=== PATIENT | female | born 1955 | race Caucasian/White ===

== ENCOUNTER → 2019-11-21 | Outpatient (CLI) | payer OTHER ==
[~2019-11-21] MED LIST: ACET-683 PO; ASPI81TA26 PO; BIOT1000 PO; CALCTAB22 PO; CARV6.25 PO; CLOP75TA2 PO; D3 H2000 PO; HYDR25TAB PO; IBUP-1022 PO; IPRA0.00 NEB; LEVAINH INH; LEVOTAB10 PO; LOSA25TA14 PO; LOVA40TA PO; MONT10TA4 PO; MUCI1TAB16 PO; MULTCAP PO; NUCA1INJ SC; PANT40TA29 PO; TREL1AER PO; VITA-243 PO
--- NOTE | 2019-11-25 10:49 | REP ---
BILATERAL LOWER EXTREMITY ARTERIAL DOPPLER ULTRASOUND HISTORY: Atherosclerosis of the [place] vessels. Nicotine dependence. FINDINGS: Ankle brachial indices are normal, measured at 1.0 bilaterally. Minimal plaquing is seen bilaterally. Triphasic and biphasic waveforms are noted throughout the lower extremities. Question of minimal stenosis in the tibioperoneal trunk region on the left. No other stenosis or occlusion is visible. BILATERAL LOWER EXTREMITY ARTERIAL VELOCITY CHART RIGHT PSV (cm/s) LEFT PSV (cm/s) [employer] MA[employer]GER 105 100 Profunda 67 59 Proximal SFA 78 88 Mid SFA 90 91 Distal SFA 75 96 Popliteal 61 64 Proximal VANESSA 33 53 Tibioperoneal trunk 89 113 Proximal CMM TECHNICIAN 67 30 Distal CMM TECHNICIAN 56 40 Distal VANESSA 56 65 MTDD
== END ==
LOC: M RAD 08:06
PROVIDERS: ATTEND Physician Assistant
DX: I70.203 Unspecified atherosclerosis of native arteries of extremities, bilateral legs (principal); F17.210 Nicotine dependence, cigarettes, uncomplicated

== ENCOUNTER → 2019-12-02 | Outpatient (CLI) | payer OTHER ==
[~2019-12-02] MED LIST changes: +ISOVUE-300 61% 50ML VIAL As Ordered ONE; +LIDOCAINE 1% MDV 20ML VIAL As Ordered ONE; +MIDAZOLAM INJ 2MG/2ML VIAL (J2250 PER 1MG) As Ordered ONE; +PERCOCET 5MG/325MG TAB As Ordered ONE; +fentaNYL 100 MCG/2 ML INJECTION (J3010) As Ordered ONE
[2019-12-02 09:13] LABS: HEMATOCRIT 45.2 % (36.0-47.0); HEMOGLOBIN 14.9 g/dl (12.0-15.5); MEAN CORPUSCULAR HEMOGLOBIN 28.1 pg (27.0-33.0); MEAN CORPUSCULAR VOLUME 85.1 fl (80.0-96.0); PLATELET COUNT, AUTOMATED 290 10^3/uL (150-450); RED BLOOD COUNT 5.31 10^6/uL (4.00-5.40); WHITE BLOOD COUNT 6.3 10^3/uL (4.0-10.0)
[2019-12-02 09:29] LABS: BLOOD UREA NITROGEN 8 MG/DL (7-18); CALCIUM LEVEL 9.4 MG/DL (8.8-10.2); CARBON DIOXIDE LEVEL 30 MEQ/L (21-32); CHLORIDE LEVEL 107 MEQ/L (98-107); CREATININE FOR GFR 0.72 MG/DL (0.55-1.30); GLOMERULAR FILTRATION RATE > 60.0 (>45); GLUCOSE, FASTING 85 MG/DL (70-100); POTASSIUM SERUM 3.8 MEQ/L (3.5-5.1); SODIUM LEVEL 142 MEQ/L (136-145)
[2019-12-02 09:41] LABS: INR 0.94; PROTHROMBIN TIME 12.8 SECONDS (12.5-14.3)
--- NOTE | 2019-12-02 10:01 | ROOPDOC ---
[facility] Report Of Operation Report of Operation DATE OF PROCEDURE: 12/02/19 PREPROCEDURE DIAGNOSES: Atherosclerosis of the [place] arteries with lifestyle limiting pain and claudication POSTPROCEDURE DIAGNOSES: Lower extremity pain PROCEDURE: 1. Ultrasound-guided access right common femoral artery 2. Aortoiliofemoral arteriogram 3. Selection left common and superficial femoral artery and left lower extremity runoff 4. Mynx closure right common femoral artery SURGEON: Isabel Huerta MD ANESTHESIA: Local anesthesia 8 mL lidocaine. Moderate intravenous conscious sedation was supervised by Dr. Huerta. The patient was independently monitored by a registered nurse assigned to the Department of radiology using automated blood pressure, EKG, and pulse oximetry. The detailed sedation record is permanently stored in the hospital information system. The following is a brief sedation record: Start time 09:20, stop time 09:37, Versed 0.5 mg IV, fentanyl 25 g IV. CONTRAST: 22 mL Isovue-300 INDICATION FOR PROCEDURE: This is a very pleasant 64-year-old female with suspected peripheral vascular disease contributing to her lower extremity pain. The patient has significant back issues, and we suspect the majority of her pain is neurogenic, but she complains of crampy calf pain with ambulation that resolves when she stops ambulating, which could be consistent with claudication. She also complains that sometimes her left foot gets cold. Based on her arterial duplex, I am not sure whether or not she has significant vascular disease in the left lower extremity, however her crampy calf ambulation symptoms are classic for claudication and her lower extremity pain is progressing to the point where she cannot do even her basic daily activities, left leg greater than right leg. She has been evaluated for her back issues, but says she was told that no further treatment options will be discussed until she is extensively evaluated for arterial disease as a possible source of her pain. Therefore, risks benefits and alternatives to an arteriogram with potential intervention were explained to the patient and she was agreeable to proceed. Informed consent was obtained. INTERPRETATION: 1. The aortoiliofemoral segments are widely patent. The patient has no stenosis in her distal aorta, common iliac arteries bilaterally, hypogastric arteries bilaterally, or external iliac arteries bilaterally. She has excellent flow into the bilateral common femoral arteries and profundus. 2. Her left lower extremity runoff is widely patent. She has excellent flow through the left superficial femoral artery, popliteal artery, and three-vessel tibial runoff to the distal foot. I do not see any areas of flow-limiting stenosis, ectasia or worrisome plaque. Her flow through the left lower extremity is rapid. She does have some diminutive vessels in the foot, and when she experiences a cold foot, it may be due to a benign vasoconstrictive event from [place], but no occlusion or stenosis is noted. REPORT OF OPERATION: The patient was brought to the angiographic suite in stable condition. Her bilateral groins were prepped and draped in a sterile fashion. A timeout was performed. Sedation was administered without complication. Local anesthesia was administered to the skin and subcutaneous tissue over the right common femoral artery. Ultrasound was used to guide access with a microneedle to the right common femoral artery and a wire was passed through this access under fluoroscopic guidance. The needle was exchanged over the wire for 4 [place] glide sheath which was flushed with saline. A Glidewire and flushing catheter were advanced into the distal aorta and aortoiliofemoral arteriograms were performed. Please see interpretation above. We then went up and over the bifurcation with the catheter in the Glidewire and selected the left common femoral artery and proximal superficial femoral artery. Left lower extremity arteriograms with runoff or perform. Please see interpretation above. We then removed the catheter over the wire and exchange the sheath over the wire for a 5 [place] sheath which was flushed with saline. We then deployed a Mynx closure device at the right common femoral artery and pressure was held for 5 minutes for good hemostasis. Sterile dressings were applied. The patient was then taken to recovery in stable condition. She tolerated the procedure and the sedation well. ESTIMATED BLOOD LOSS: Approximately 5 mL. COMPLICATIONS: None. PLAN: We will see the patient back in a week to check her groin access site. From a vascular standpoint, no further workup or intervention is indicated at this time. We would like to see the patient back annually for repeat arterial duplex for surveillance, but at this time it is okay to pursue other treatment options with her other specialists as indicated for her lower extremity pain. Okay to resume home medications and diet. We appreciate the opportunity to participate in the care of this patient. ISABEL HUERTA MD Dec 02, 2019 10:01
[2019-12-02 13:35] VITALS: BP 114/53
== END ==
LOC: M IRPRO 08:16
PROVIDERS: ATTEND Surgery Vascular Surgery
DX: M79.605 Pain in left leg (principal); E78.00 Pure hypercholesterolemia, unspecified; F17.210 Nicotine dependence, cigarettes, uncomplicated; G89.29 Other chronic pain; I10 Essential (primary) hypertension; J44.9 Chronic obstructive pulmonary disease, unspecified; M54.16 Radiculopathy, lumbar region; Z79.01 Long term (current) use of anticoagulants; Z79.82 Long term (current) use of aspirin; Z79.899 Other long term (current) drug therapy
CPT/HCPCS: 36200; 75630; 80048; 85027; 85610; 99152; C1760; C1769; C1887; C1894; G0269; J1644; J2250; J3010; Q9967

== ENCOUNTER → 2019-12-11 | Outpatient (CLI) | payer OTHER ==
[~2019-12-11] MED LIST changes: -ISOVUE-300 61% 50ML VIAL As Ordered ONE; -LIDOCAINE 1% MDV 20ML VIAL As Ordered ONE; -MIDAZOLAM INJ 2MG/2ML VIAL (J2250 PER 1MG) As Ordered ONE; -PERCOCET 5MG/325MG TAB As Ordered ONE; -fentaNYL 100 MCG/2 ML INJECTION (J3010) As Ordered ONE
== END ==
LOC: M LABSMTC 11:17
PROVIDERS: ATTEND Physical Medicine & Rehabilitation
DX: Z11.59 Encounter for screening for other viral diseases (principal)

== ENCOUNTER → 2020-02-05 | Outpatient (CLI) | payer OTHER ==
[~2020-02-05] MED LIST changes: -MONT10TA4 PO; +MONT5TAB2 PO
== END ==
LOC: M LABSMTC 12:31
PROVIDERS: ATTEND Physical Medicine & Rehabilitation
DX: Z01.812 Encounter for preprocedural laboratory examination (principal); Z20.828 Contact with and (suspected) exposure to other viral communicable diseases

== ENCOUNTER → 2021-11-26 | Outpatient (CLI) | payer MEDICARE ==
[~2021-11-26] MED LIST changes: +HYDR-3490 PO; -HYDR25TAB PO; +LOSA25TA13 PO; -LOSA25TA14 PO; +MONT10TA97 PO; -MONT5TAB2 PO
== END ==
LOC: M PAIN 13:30
PROVIDERS: ATTEND Nurse Practitioner Family
DX: M96.1 Postlaminectomy syndrome, not elsewhere classified (principal); G89.29 Other chronic pain; I10 Essential (primary) hypertension; J44.9 Chronic obstructive pulmonary disease, unspecified; F17.200 Nicotine dependence, unspecified, uncomplicated; Z88.0 Allergy status to penicillin; Z79.51 Long term (current) use of inhaled steroids; Z79.82 Long term (current) use of aspirin; Z79.899 Other long term (current) drug therapy

== ENCOUNTER → 2021-12-22 | Outpatient (CLI) | payer MEDICARE | LOC: M PAIN 15:45 | PROVIDERS: ATTEND Anesthesiology | DX: M96.1 Postlaminectomy syndrome, not elsewhere classified (principal); G89.29 Other chronic pain; I10 Essential (primary) hypertension; I25.2 Old myocardial infarction; J44.9 Chronic obstructive pulmonary disease, unspecified; F17.200 Nicotine dependence, unspecified, uncomplicated; Z88.0 Allergy status to penicillin; Z79.51 Long term (current) use of inhaled steroids; Z79.82 Long term (current) use of aspirin; Z79.899 Other long term (current) drug therapy ==

== ENCOUNTER → 2022-01-11 | Outpatient (CLI) | payer MEDICARE | LOC: M PAIN 14:15 | PROVIDERS: ATTEND Anesthesiology | DX: M96.1 Postlaminectomy syndrome, not elsewhere classified (principal); M54.16 Radiculopathy, lumbar region; G89.29 Other chronic pain; I10 Essential (primary) hypertension; I25.2 Old myocardial infarction; J44.9 Chronic obstructive pulmonary disease, unspecified; F17.200 Nicotine dependence, unspecified, uncomplicated; Z88.0 Allergy status to penicillin; Z79.51 Long term (current) use of inhaled steroids; Z79.82 Long term (current) use of aspirin; Z79.899 Other long term (current) drug therapy ==

== ENCOUNTER → 2022-05-04 | Outpatient (CLI) | payer MEDICARE, OTHER | LOC: M PAIN 11:15 → M TMPAIN 11:15 | PROVIDERS: ATTEND Anesthesiology | DX: M96.1 Postlaminectomy syndrome, not elsewhere classified (principal); G89.29 Other chronic pain; I10 Essential (primary) hypertension; I25.2 Old myocardial infarction; J44.9 Chronic obstructive pulmonary disease, unspecified; F17.200 Nicotine dependence, unspecified, uncomplicated; Z95.5 Presence of coronary angioplasty implant and graft; Z88.0 Allergy status to penicillin; Z79.51 Long term (current) use of inhaled steroids; Z79.82 Long term (current) use of aspirin; Z79.899 Other long term (current) drug therapy ==

== ENCOUNTER → 2022-05-19 | Outpatient (CLI) | payer MEDICARE, OTHER | LOC: M PAIN 14:30 | PROVIDERS: ATTEND Anesthesiology | DX: M96.1 Postlaminectomy syndrome, not elsewhere classified (principal); G89.29 Other chronic pain; I10 Essential (primary) hypertension; J44.9 Chronic obstructive pulmonary disease, unspecified; I25.2 Old myocardial infarction; Z95.5 Presence of coronary angioplasty implant and graft; Z87.891 Personal history of nicotine dependence; Z88.0 Allergy status to penicillin; Z79.51 Long term (current) use of inhaled steroids; Z79.82 Long term (current) use of aspirin; Z79.899 Other long term (current) drug therapy ==

== ENCOUNTER → 2022-06-15 | Outpatient (CLI) | payer MEDICARE, OTHER | LOC: M PAIN 11:30 | PROVIDERS: ATTEND Anesthesiology | DX: M96.1 Postlaminectomy syndrome, not elsewhere classified (principal); G89.29 Other chronic pain; I10 Essential (primary) hypertension; I25.2 Old myocardial infarction; J44.9 Chronic obstructive pulmonary disease, unspecified; Z95.5 Presence of coronary angioplasty implant and graft; Z87.891 Personal history of nicotine dependence; Z88.0 Allergy status to penicillin; Z79.51 Long term (current) use of inhaled steroids; Z79.82 Long term (current) use of aspirin; Z79.899 Other long term (current) drug therapy ==

== ENCOUNTER → 2022-07-01 | Outpatient (CLI) | payer MEDICARE, OTHER | LOC: M PAIN 16:15 | PROVIDERS: ATTEND Anesthesiology | DX: M96.1 Postlaminectomy syndrome, not elsewhere classified (principal); M54.16 Radiculopathy, lumbar region; I25.10 Atherosclerotic heart disease of native coronary artery without angina pectoris; I10 Essential (primary) hypertension; I25.2 Old myocardial infarction; J44.9 Chronic obstructive pulmonary disease, unspecified; Z87.891 Personal history of nicotine dependence; Z88.0 Allergy status to penicillin; Z79.51 Long term (current) use of inhaled steroids; Z79.82 Long term (current) use of aspirin; Z79.899 Other long term (current) drug therapy ==

== ENCOUNTER → 2022-07-22 | Outpatient (CLI) | payer OTHER, MEDICARE | LOC: M PAIN 17:30 | PROVIDERS: ATTEND Anesthesiology | DX: M96.1 Postlaminectomy syndrome, not elsewhere classified (principal); G89.29 Other chronic pain; I10 Essential (primary) hypertension; J44.9 Chronic obstructive pulmonary disease, unspecified; I25.2 Old myocardial infarction; Z95.5 Presence of coronary angioplasty implant and graft; Z87.891 Personal history of nicotine dependence; Z88.0 Allergy status to penicillin; Z79.51 Long term (current) use of inhaled steroids; Z79.82 Long term (current) use of aspirin; Z79.899 Other long term (current) drug therapy ==

== ENCOUNTER → 2022-08-24 | Outpatient (CLI) | payer OTHER | LOC: M PAIN 14:15 | PROVIDERS: ATTEND Anesthesiology | DX: M96.1 Postlaminectomy syndrome, not elsewhere classified (principal); M54.16 Radiculopathy, lumbar region; G89.29 Other chronic pain; I10 Essential (primary) hypertension; J44.9 Chronic obstructive pulmonary disease, unspecified; Z95.5 Presence of coronary angioplasty implant and graft; Z87.891 Personal history of nicotine dependence; Z88.0 Allergy status to penicillin; Z79.82 Long term (current) use of aspirin; Z79.899 Other long term (current) drug therapy ==

== ENCOUNTER → 2022-08-31 | Outpatient (CLI) | payer OTHER | LOC: M PAIN 14:15 | PROVIDERS: ATTEND Anesthesiology | DX: M96.1 Postlaminectomy syndrome, not elsewhere classified (principal); I10 Essential (primary) hypertension; J45.909 Unspecified asthma, uncomplicated; J44.9 Chronic obstructive pulmonary disease, unspecified; Z95.5 Presence of coronary angioplasty implant and graft; H26.9 Unspecified cataract; Z87.891 Personal history of nicotine dependence; Z79.02 Long term (current) use of antithrombotics/antiplatelets; Z79.899 Other long term (current) drug therapy; Z79.82 Long term (current) use of aspirin; Z88.0 Allergy status to penicillin ==